=== PATIENT | female | born 1970 | race Caucasian/White ===

== ENCOUNTER 2019-12-29 08:54 | Outpatient (CLI) | payer OTHER ==
[2019-12-29 16:37] LABS: SARS-CoV-2 MS2 Positive; SARS-CoV-2 N Gene Negative; SARS-CoV-2 S Gene Negative; SARS-CoV-2 by NAA Not Detected (NotDetected); SARS-CoV-2 orf1ab Negative
== END 2019-12-29 08:55 | disposition home or self-care (01) ==
LOC: LABBT 08:54
PROVIDERS: ATTEND Neurological Surgery
DX: M54.2 Cervicalgia (principal); Z20.828 Contact with and (suspected) exposure to other viral communicable diseases
CPT/HCPCS: 87635; U0003

== ENCOUNTER 2020-01-02 11:37 | Day surgery (SDC) | payer OTHER ==
[~2020-01-02 11:37] MED LIST: Lidocaine 1% PF 5 ML VIAL ONE; PROPOFOL 200 MG/20 ML VIAL ONE
--- NOTE | 2020-01-02 13:13 | MRI ---
MR CERVICAL SPINE WITHOUT CONTRAST INDICATION: 49-year-old female with history of neck pain TECHNIQUE: Multiplanar multisequence MR images were obtained of the cervical spine without contrast. COMPARISON: Prior MR cervical spine dated November 20, 2018 and cervical spinal radiograph dated Nov. FINDINGS: Posterior fossa: Within normal limits. Bone marrow signal intensity: There is susceptibility artifact centered at the C5-C6 intervertebral d isc level corresponding to patient's known intervertebral disc prosthesis. This limits visualization of the spinal cord at the C5-C6 intervertebral level. Spinal alignment: Normal. Craniocervical junction: Normal appearing. Prevertebral and perivertebral soft tissues: Visualized soft tissues appear within normal limits. Vertebral levels: C2-C3: No appreciable central canal or neuroforaminal narrowing. C3-4: There is mild right and moderate left facet joint degenerative change. No appreciable central c anal or neural foraminal narrowing is evident. The facet osteoarthrosis is stable to the prior. C4-5: There is bilateral mild facet joint degenerative change which is stable. No appreciable centra l canal or neural foraminal narrowing is demonstrated. C5-C6: Limited visualization of the spinal canal at this level due to susceptibility artifact. No mg reciable neural foraminal narrowing is evident. There is mild facet joint degenerative change which is stable to the prior exam. C6-C7:, There is a mild broad-based disc bulge causing some effacement of ventral subarachnoid space and encroachment upon the neural foramina that appears stable to the prior exam. C7-T1: No appreciable central canal or neuroforaminal narrowing. IMPRESSION: 1. Stable MR examination of the cervical spine with mild spondylosis and postoperative changes above. 2. Stable broad-based disc bulge at C6-7 causing mild effacement of ventral subarachnoid space and mi ld neural foraminal narrowing bilaterally.
== END 2020-01-02 14:05 | disposition home or self-care (01) ==
LOC: SDC 11:37 → EDSTATUS 14:00 → SDC 14:05
PROVIDERS: ATTEND Neurological Surgery
DX: M50.30 Other cervical disc degeneration, unspecified cervical region (principal); M47.812 Spondylosis without myelopathy or radiculopathy, cervical region; M48.02 Spinal stenosis, cervical region; F41.9 Anxiety disorder, unspecified; F32.9 Major depressive disorder, single episode, unspecified; G89.29 Other chronic pain; Z98.890 Other specified postprocedural states
CPT/HCPCS: 72141; J2704

== ENCOUNTER 2020-02-09 15:53 | Emergency (ER) | payer OTHER ==
[2020-02-10 00:45] LABS: SARS-CoV-2 MS2 Positive; SARS-CoV-2 N Gene Negative; SARS-CoV-2 S Gene Negative; SARS-CoV-2 by NAA Not Detected (NotDetected); SARS-CoV-2 orf1ab Negative
== END 2020-02-09 17:26 | disposition home or self-care (01) ==
LOC: ERS 15:53
DX: R52 Pain, unspecified (principal); R09.81 Nasal congestion; Z20.828 Contact with and (suspected) exposure to other viral communicable diseases; F17.210 Nicotine dependence, cigarettes, uncomplicated
CPT/HCPCS: 87081; 87430; 87635; 87804; 99283; U0003

== ENCOUNTER 2020-04-02 15:27 | Emergency (ER) | payer OTHER ==
[2020-04-03 04:20] LABS: SARS-CoV-2 PCR by NAA Not Detected (NotDetected)
== END 2020-04-02 16:20 | disposition home or self-care (01) ==
LOC: ERS 15:27
DX: Z20.822 Contact with and (suspected) exposure to COVID-19 (principal); F17.210 Nicotine dependence, cigarettes, uncomplicated
CPT/HCPCS: 87635; 99283; U0003; U0005

== ENCOUNTER 2020-05-13 12:45 | Outpatient (CLI) | payer OTHER | END 2020-05-13 12:46 | disposition home or self-care (01) | LOC: RAD 12:45 | PROVIDERS: ATTEND Urology | DX: S37.20XD Unspecified injury of bladder, subsequent encounter (principal) | CPT/HCPCS: 51600; 74430 ==

== ENCOUNTER 2023-01-03 14:20 | Emergency (ER) | payer OTHER ==
[2023-01-03 15:47] LABS: #Eosinphils 0.3 thou/uL (0.0-0.7); #Monocytes 0.6 thou/uL (0.11-0.59); #Neutrophils 3.1 thou/uL (1.40-6.50); %Basophils 0.3 % (0.0-1.0); %Eosinophils 4.3 % (0.0-10.0); %Lymphocytes 37.7 % (21.0-51.0); %Monocytes 9.6 % (0.0-10.0); %Neutrophils 47.8 % (42.0-75.0); Hemoglobin 13.5 g/dL (12.0-16.0); Mean Corpuscular HGB CONC 33.8 g/dL (32.0-36.0); Mean Corpuscular Hemoglobin 30.8 pg (27.0-31.0); Mean Corpuscular Volume 91.3 fl (78.0-98.0); Mean Platelet Volume 9.5 fL (7.4-10.4); Platelet Count 246 10x3/uL (130-400); RBC Distribution Width 12.9 % (11.5-14.5); Red Blood Cell (RBC) Count 4.38 mill/uL (4.20-5.40); White Blood Cell (WBC) Count 6.6 10x3/uL (4.8-10.8)
[2023-01-03 16:22] LABS: ALT (SGPT) 40 U/L (8-55); AST (SGOT) 29 U/L (5-34); Albumin 4.9 g/dL (3.5-5.0); Alcohol Less than 10.0 mg/dL (Less than 10); Alkaline Phosphatase 68 U/L (40-110); Anion Gap 12 mmol/L (10-20); BUN (Urea Nitrogen) 17 mg/dL (9.8-20.1); Bilirubin, Total 0.2 mg/dL (0.2-1.2); Calc. Creatinine Clearance 0 mL/min (70-130); Carbon Dioxide 23 mmol/L (22-29); Chloride 103 mmol/L (98-107); Estimated GFR 88; Globulin 2.7 g/dL (2.4-3.5); Glucose 90 mg/dL (70-105); Potassium 4.3 mmol/L (3.5-5.1); Protein, Total 7.6 g/dL (6.0-8.3); Sodium 134 mmol/L (136-145)
[2023-01-03 16:51] LABS: Magnesium 1.9 mg/dL (1.6-2.6)
[2023-01-03 16:57] LABS: Troponin I Less than 0.010 ng/mL (< 0.028)
[2023-01-03] MEDS ORDERED: HYDROcodone/Acetaminophen 5/325 mg Tablet ONE (17:42)
[2023-01-03 17:46] LABS: Acetaminophen Less than 10 mcg/mL (10.0-30.0); Alcohol Less than 10.0 mg/dL (Less than 10); Salicylate Less than 8.0 mg/dL (15.0-30.0)
[2023-01-03 18:07] LABS: Bacteria/HPF None Seen HPF (None Seen); Bilirubin Negative (Negative); Blood, Urine Negative (Negative); CAUTI Indications for Culture Dysuria,urgency,freq; Clarity Clear (Clear); Glucose, Urine (Dipstick) Normal (Negative); Ketone, Urine Negative (Negative); Leukocyte Negative Leu/uL (Negative); Nitrite Negative (Negative); Protein, Urine (Dipstick) Negative (Neg-Trace); RBC/HPF None Seen HPF (0-3); Specific Gravity, Urine 1.007 (1.002-1.036); Squamous Epithelial 0-3 HPF (0-3); Urobilinogen Normal mg/dL (Less than 2); WBC/HPF None Seen HPF (0-3)
[2023-01-03 18:10] LABS: Urine Culture Reflex No No
[2023-01-03 18:15] LABS: Amphetamine Not Detected (NotDetected); Barbiturates Screen Detected (NotDetected); Benzodiazepine Screen Detected (NotDetected); Cocaine Metabolite Screen Not Detected (NotDetected); Methadone Not Detected (NotDetected); Methamphetamine Not Detected (NotDetected); Opiate Screen Not Detected (NotDetected); Oxycodone Screen Not Detected (NotDetected); Phencyclidine (PCP) Not Detected (NotDetected); THC/Cannabinoid Screen Not Detected (NotDetected); Tricyclic Screen Not Detected (NotDetected)
== END 2023-01-03 21:16 | disposition home or self-care (01) ==
LOC: ERS 14:20 → EEVIPCON 14:20 → ERS 21:16
DX: F32.A Depression, unspecified (principal); I10 Essential (primary) hypertension; E78.5 Hyperlipidemia, unspecified; F17.210 Nicotine dependence, cigarettes, uncomplicated; Z79.899 Other long term (current) drug therapy
CPT/HCPCS: 70450; 72125; 72131; 80053; 80306; 80307; 81001; 83735; 84443; 84484; 85025; 93005

== ENCOUNTER 2024-02-10 21:00 | Emergency (ER) | payer SELFPAY ==
[~2024-02-10 21:00] MED LIST changes: +Iopamidol-370 76% 500 ML MDV (1 ML CHARGE) ONE; -Lidocaine 1% PF 5 ML VIAL ONE; -PROPOFOL 200 MG/20 ML VIAL ONE
[2024-02-10 22:47] LABS: #Basophils 0.03 10x3/uL (0.0-0.2); %Basophils 0.4 % (0.0-1.0); %Eosinophils 3.4 % (0.0-10.0); %Lymphocytes 35.5 % (21.0-51.0); %Monocytes 7.2 % (0.0-10.0); %Neutrophils 53.4 % (42.0-75.0); Hematocrit 36.9 % (36.0-47.0); Hemoglobin 12.7 g/dL (12.0-16.0); Mean Corpuscular HGB CONC 34.4 g/dL (32.0-36.0); Mean Corpuscular Hemoglobin 29.7 pg (27.0-31.0); Mean Corpuscular Volume 86.4 fL (78.0-98.0); Platelet Count 292 10x3/uL (130-400); RBC Distribution Width 13.4 % (11.5-14.5); Red Blood Cell (RBC) Count 4.27 mill/uL (4.20-5.40)
[2024-02-10] MEDS ORDERED: fentaNYL 50 mcg/mL 1 mL Vial ONE (22:54)
[2024-02-10 23:06] LABS: ALT (SGPT) 24 U/L (8-55); AST (SGOT) 22 U/L (5-34); Albumin 3.9 g/dL (3.5-5.0); Alkaline Phosphatase 69 U/L (40-110); Anion Gap 15 mmol/L (10-20); BUN (Urea Nitrogen) 8 mg/dL (9.8-20.1); Bilirubin, Total 0.3 mg/dL (0.2-1.2); Calc. Creatinine Clearance 0 mL/min (70-130); Calcium 9.3 mg/dL (7.8-10.44); Carbon Dioxide 23 mmol/L (22-29); Chloride 108 mmol/L (98-107); Estimated GFR 95; Globulin 3.5 g/dL (2.4-3.5); Glucose 141 mg/dL (70-105); Potassium 3.6 mmol/L (3.5-5.1); Protein, Total 7.4 g/dL (6.0-8.3); Sodium 142 mmol/L (136-145)
[2024-02-11] MEDS ORDERED: Dexamethasone 10 MG/ML VIAL ONE (00:09)
== END 2024-02-11 00:26 | disposition home or self-care (01) ==
LOC: ERS 21:00
DX: K04.7 Periapical abscess without sinus (principal); L02.01 Cutaneous abscess of face; I10 Essential (primary) hypertension; F17.210 Nicotine dependence, cigarettes, uncomplicated; F17.290 Nicotine dependence, other tobacco product, uncomplicated
CPT/HCPCS: 70487; 80053; 83605; 85025; 96374; J1100; J3010; Q9967